=== PATIENT | female | born 1995 | race Caucasian/White ===

== ENCOUNTER 2016-12-17 15:40 | Emergency (ER) | payer MEDICAID ==
[~2016-12-17] VITALS: Ht 163.8 cm; Wt 68.5 kg
[2016-12-17 15:47] VITALS: Ht 163.8 cm; Wt 68.5 kg
[2016-12-17] MEDS ORDERED: SOD CHLORIDE 0.9% 1,000 ML IV STA (17:57)
[2016-12-17 18:47] LABS: ADD SCAN DIFF NO
[2016-12-17 18:51] LABS: BASOPHILS % 0.3 % (0.0-2.0); EOSINOPHILS # 0.1 10^3/ul (0.0-0.5); EOSINOPHILS % 1.3 % (0.0-7.0); HEMATOCRIT 38.9 % (37.0-47.0); HEMOGLOBIN 13.5 g/dl (12.0-16.0); LYMPHOCYTES # 2.5 10^3/ul (0.8-2.9); LYMPHOCYTES % 22.9 % (15.0-51.0); MEAN CORPUSCULAR HEMOGLOBIN 30.9 pg (29.0-33.0); MEAN CORPUSCULAR HGB CONC 34.7 g/dl (32.0-37.0); MEAN PLATELET VOLUME 11.4 fl (7.4-10.4); MONOCYTE # 0.6 10^3/ul (0.3-0.9); MONOCYTES % 5.1 % (0.0-11.0); NEUTROPHIL # 7.6 10^3/ul (1.6-7.5); NEUTROPHILS % 70.1 % (39.0-77.0); PLATELET COUNT 333 10^3/UL (140-415); RED BLOOD COUNT 4.37 10^6/ul (4.20-5.40); RED CELL DISTRIBUTION WIDTH 12.6 % (11.5-14.5); WHITE BLOOD COUNT 10.9 10^3/ul (4.8-10.8)
[2016-12-17 19:01] LABS: ADD UMIC YES; URINE BILIRUBIN (Dip) NEGATIVE (NEGATIVE); URINE BLOOD (Dip) NEGATIVE (NEGATIVE); URINE COLOR LT. YELLOW (YELLOW); URINE GLUCOSE (Dip) NEGATIVE (NEGATIVE); URINE KETONES (Dip) NEGATIVE (NEGATIVE); URINE LEUKOCYTE ESTERASE (Dip) 2+ (NEGATIVE); URINE NITRITE (Dip) NEGATIVE (NEGATIVE); URINE TOTAL PROTEIN (Dip) NEGATIVE (NEGATIVE); URINE UROBILINOGEN (Dip) 0.2 E.U./dL (0.1-1.0)
[2016-12-17 19:01] LABS: ALBUMIN 3.8 g/dl (3.3-4.9)
[2016-12-17 19:03] LABS: CREATININE 0.53 mg/dl (0.44-1.00)
[2016-12-17 19:04] LABS: ALBUMIN/GLOBULIN RATIO 1.15; BILIRUBIN,INDIRECT 0.3 mg/dl (0-1.1); BILIRUBIN,TOTAL 0.3 mg/dl (0.2-1.3); CALCIUM 9.3 mg/dl (8.4-10.2); TOTAL PROTEIN 7.1 g/dl (6.1-8.1)
[2016-12-17 19:20] LABS: SQUAMOUS EPITHELIAL CELL,UR MANY
[2016-12-17 19:24] LABS: BACTERIA,URINE FEW
[2016-12-17 19:30] LABS: POTASSIUM 4.6 mmol/L (3.5-5.1)
[2016-12-17] MEDS ORDERED: METOCLOPRAMIDE 10 MG TAB PO ONE (19:30)
[2016-12-17] MEDS ORDERED: CEPHALEXIN 500 MG CAP PO STA (19:48)
[2016-12-17] MEDS ORDERED: CEPH-443 PO (19:49)
[2016-12-17] MEDS ORDERED: METO10TA92 PO (19:50)
--- NOTE | 2016-12-17 19:56 | ERD ---
ER Documentation Chief Complaint Date/Time DATE: 12/17/16 TIME: 19:52 Chief Complaint 16 wks preg vomit x 2 days HPI This is a 21-year-old female who is A1 stating that she is 16 weeks complaining of 2 days of vomiting. Patient denies any vaginal bleeding , abdominal pain, pelvic pain, shortness of breath or fever. Patient denies diarrhea. Patient states that she has been evaluated at Dr.Payman Rothman at the [facility] for IV hydration secondary to a gastrointestinal virus. Patient states that her her last ultrasound and blood work was normal. Patient has not taken any medications for this ROS All systems reviewed and are negative except as per history of present illness. Medications Home Meds Active Scripts Metoclopramide* (Reglan*) 10 Mg Tablet, 10 MG PO Q6 Y for NAUSEA AND/OR VOMITING , #10 TAB Prov:KAYLIN HERNANDEZ PA-C 12/17/16 Cephalexin* (Keflex*) 500 Mg Capsule, 500 MG PO QID for 7 Days, CAP Prov:KAYLIN HERNANDEZ PA-C 12/17/16 PMhx/Soc Medical and Surgical Hx: pt denies Medical Hx History of Surgery: Yes (RT BREAST FIBROID SX) Anesthesia Reaction: No Hx Neurological Disorder: No Hx Respiratory Disorders: No Hx Cardiac Disorders: No Hx Psychiatric Problems: No Hx Miscellaneous Medical Probl: No Hx Alcohol Use: No Hx Substance Use: No Hx Tobacco Use: No Physical Exam Vitals Vital Signs Date Time Temp Pulse Resp B/P Pulse Ox O2 Delivery O2 Flow Rate FiO2 12/17/16 15:47 98.6 76 18 109/58 97 Physical Exam GENERAL: well-developed/well-nourished, in no apparent distress, non-toxic appearing HENT: NC/AT, moist mucous membranes EYES: Conjunctiva normal NECK: Supple, no lymphadenopathy PULM: CTA bilaterally, no rales, rhonchi, or wheezing heard CV: Normal S1S2, RRR, good capillary refill GI: Soft, non-distended, momtender to palpation Normal bowel sounds, no masses or organomegaly felt on exam No gross peritonitis, no bruits Negative Rovsing, negative Ash, negative McBurney's point, Negative CVAT BACK: No masses EXT: No clubbing, cyanosis, or edema NEURO: Alert and Orientated SKIN: Intact, normal turgor PSYCH: Normal mood and mentation Result Diagram: 12/17/16182812/17/161828 Results 24 hrs Laboratory Tests Test 12/17/16 18:05 12/17/16 18:29 Urine Bacteria FEW Urine Bilirubin NEGATIVE Urine Clarity CLEAR Urine Color LT. YELLOW Urine Glucose NEGATIVE% Urine Hemoglobin NEGATIVE Urine Ketones NEGATIVE Urine Leukocyte Esterase 2+ Urine Microscopic RBC 2-5/HPF Urine Microscopic WBC 5-10/HPF Urine Nitrite NEGATIVE Urine Specific [place] 1.010 Urine Squamous Epithelial Cells MANY Urine Starch Urine Total Protein NEGATIVE Urine Urobilinogen 0.2 E.U./dL Urine pH 8.0 Alanine Aminotransferase (ALT/SGPT) 41IU/L Albumin 3.8g/dl Albumin/Globulin Ratio 1.15 Alkaline Phosphatase 72IU/L Anion Gap 14 Aspartate Amino Transf (AST/SGOT) 63IU/L Basophils # 0.010^3/ul Basophils % 0.3% Blood Urea Nitrogen 8mg/dl Calcium Level 9.3mg/dl Carbon Dioxide Level 25mmol/L Chloride Level 104mmol/L Creatinine 0.53mg/dl Direct Bilirubin 0.00mg/dl Eosinophils # 0.110^3/ul Eosinophils % 1.3% Globulin 3.30g/dl Glucose Level 70mg/dl Hematocrit 38.9% Hemoglobin 13.5g/dl Indirect Bilirubin 0.3mg/dl Lipase 86U/L Lymphocytes # 2.510^3/ul Lymphocytes % 22.9% Mean Corpuscular Hemoglobin 30.9pg Mean Corpuscular Hemoglobin Concent 34.7g/dl Mean Corpuscular Volume 89.0fl Mean Platelet Volume 11.4fl Monocytes # 0.610^3/ul Monocytes % 5.1% Neutrophils # 7.610^3/ul Neutrophils % 70.1% Nucleated Red Blood Cells # 0.010^3/ul Nucleated Red Blood Cells % 0.0/100WBC Platelet Count 35490^3/UL Potassium Level 4.6mmol/L Red Blood Count 4.3710^6/ul Red Cell Distribution Width 12.6% Sodium Level 138mmol/L Total Bilirubin 0.3mg/dl Total Protein 7.1g/dl White Blood Count 10.910^3/ul Current Medications Medications (Trade) Dose Ordered Sig/Bernardo Route PRN Reason Start Time Stop Time Status Last Admin Dose Admin Sodium Chloride (NS) 1,000 ml @ 1,000 mls/hr Q1H STAT IV 12/17/16 17:57 12/17/16 18:56 DC 12/17/16 18:36 Metoclopramide HCl (Reglan) 10 mg ONCE ONCE PO 12/17/16 19:30 12/17/16 19:31 DC 12/17/16 19:14 Cephalexin (Keflex) 500 mg ONCE STAT PO 12/17/16 19:48 12/17/16 19:49 DC Procedures/MDM This is a 21-year-old female who is A1 stating that she is 16 weeks complaining of 2 days of vomiting. Patient states that she has been evaluated at Dr.Payman Rothman at the [facility] [place] [facility] for IV hydration secondary to a gastrointestinal virus. Patient states that her her last ultrasound and blood work was normal. My differentials include but not limited to viral gastritis, hyperemesis gravidarum, urinary tract infection. There was no evidence of pyelonephritis, nephrolithiasis. She did not have any evidence of significant dehydration. Patient appears well, she has stable vital signs. She does not seem to be in any distress. IV access established. Patient was given 1 L of fluids. She was also given Reglan with improvement. Lab work was done. CBC did not show any evidence of significant anemia or leukocytosis. CMP was unremarkable. Urinalysis did show +2 leukocyte esterase and 2-5 white count therefore patient will be empirically treated for Keflex antibiotic. Her first dose was given in the ED. I discussed with patient to follow-up with Dr. Kinsey tomorrow for further action management. Patient understands and agrees with this plan. Prescription Keflex and Reglan was given Departure Diagnosis: Primary Impression: UTI in Additional Impression: Vomiting Condition: Stable Patient Instructions: Understanding Urinary Tract Infections (UTIs), Diet, Vomiting Or Diarrhea [6Yr-Adult], Vomiting (6Y-Adult) Referrals: PRATEEK ROTHMAN MD Additional Instructions: Visite a darby arti madrigal para un EXAMEN.Regrese a estas instalaciones si no se mejora tiffany esperbamos o tiffany le dijimos. [place] toda la medicina mikhail y tiffany se le indic. Regrese a estas instalaciones si no se mejora tiffany esperbamos o tiffany le dijimos. KAYLIN HERNANDEZ PA-C Dec 17, 2016 19:56
[2016-12-17 20:29] VITALS: BP 104/70; PULSE 74; RESP 18; TEMP 98.6
== END 2016-12-17 20:31 | disposition home or self-care (01) ==
LOC: FTE 15:40
DX: O23.42 Unspecified infection of urinary tract in pregnancy, second trimester (principal); Z3A.16 16 weeks gestation of pregnancy
CPT/HCPCS: 80053; 81001; 83690; 85025; J7030; Z7502; Z7610; 81003

== ENCOUNTER 2017-04-23 15:33 | Inpatient (IN) | payer MEDICAID ==
[~2017-04-23] VITALS: Ht 152.4 cm; Wt 66.2 kg
[~2017-04-23 15:33] MED LIST: CEPH-443 PO; METO10TA92 PO
[2017-04-23 15:44] VITALS: BP 134/84; PULSE 76; RESP 20
[2017-04-23 15:47] VITALS: Ht 152.4 cm; Wt 66.2 kg
[2017-04-23] MEDS ORDERED: PRENAT PO (15:49)
[2017-04-23] MEDS ORDERED: FERR325C PO (15:49)
[2017-04-23] MEDS ORDERED: CALC650T12 PO (15:50)
--- NOTE | 2017-04-23 16:57 | RADRPT ---
PROCEDURE: OB ultrasound for biophysical profile CLINICAL INDICATION: Decreased movement TECHNIQUE: Multiple sonographic images of the pelvis were obtained. Transabdominal view of the gr avid uterus are available for review. The images were reviewed on a PACS workstation. COMPARISON: None FINDINGS: breathing movement = 2/2 tone = 2/2 motion = 2/2 Quantitative amniotic fluid volume = 0/2 CARLITO = 3.4 cm Single live intrauterine with cardiac activity at 137 beats per minute. There is a left lateral placenta without previa. IMPRESSION: 1. Single living intrauterine gestation in cephalic position. 2. Biophysical profile = 68. 3. CARLITO = 3.4 cm consistent with mild oligohydramnios. A call report was made to labor and manager delivery. Olivia on 04/23/2017 4:54:46 PM. RPTAT: AACC Physician Indu Date Time Electronically viewed and signed by Physician Indu on 04/23/2017 16:57 ELIZABETH/
[2017-04-23] MEDS ORDERED: ACETAMINOPHEN 325 MG TAB PO PRN (17:30)
[2017-04-23] MEDS ORDERED: ONDANSETRON 4 MG INJ IV PRN (17:30)
--- NOTE | 2017-04-23 17:51 | RADRPT ---
PROCEDURE: US OB. CLINICAL INDICATION: Low amniotic fluid volume. TECHNIQUE: Multiple sonographic images of the uterus were obtained. The images were revi ewed on a PACS workstation. COMPARISON: No prior studies are available for comparison. FINDINGS: There is a single live intrauterine gestation. heart rate is 136 beats per minute. Measurements were made in order to determine age. The results are as follows: BPD = 7.98 cm. HC = 30.12 cm. AC = 31.07 cm. FL = 6.68 cm. Estimated weight is 2411 +/- 362 grams. LMP growth percentile is 50 %. The umbilical artery systolic to diastolic ratio is 2.6 Menstrual age by ultrasound dates is 33 weeks 5 days. The estimated date of delivery is 06/06/2017. Position is cephalic and placenta is left lateral grade II. There is no evidence for an abruption or placenta previa. IMPRESSION: 1. Single live intrauterine gestation of 33 weeks 5 days menstrual age by ultrasound dates. 2. The estimated date of delivery is 06/06/2017. 3. Umbilical artery systolic to diastolic ratio is 2.6. RPTAT: QQ .Cecil Arita MD, Date Time Electronically viewed and signed by .Cecil Arita MD, on 04/23/2017 17:51 .R/
[2017-04-23] MEDS: LACTATED RINGER'S 1,000 ML IV SCH (18:15)
[2017-04-23] MEDS: BETAMET NA PHOS/AC(6 MG/ML) 5ML INJ IM SCH (18:24)
[2017-04-23 18:31] LABS: ADD SCAN DIFF NO
[2017-04-23 18:34] LABS: BASOPHILS % 0.3 % (0.0-2.0); EOSINOPHILS # 0.1 10^3/ul (0.0-0.5); EOSINOPHILS % 1.1 % (0.0-7.0); HEMATOCRIT 39.1 % (37.0-47.0); HEMOGLOBIN 13.5 g/dl (12.0-16.0); LYMPHOCYTES % 19.9 % (15.0-51.0); MEAN CORPUSCULAR HEMOGLOBIN 31.6 pg (29.0-33.0); MEAN CORPUSCULAR HGB CONC 34.5 g/dl (32.0-37.0); MEAN CORPUSCULAR VOLUME 91.6 fl (82.0-101.0); MEAN PLATELET VOLUME 10.7 fl (7.4-10.4); MONOCYTE # 0.7 10^3/ul (0.3-0.9); MONOCYTES % 6.8 % (0.0-11.0); NEUTROPHIL # 7.3 10^3/ul (1.6-7.5); NEUTROPHILS % 71.7 % (39.0-77.0); PLATELET COUNT 366 10^3/UL (140-415); RED BLOOD COUNT 4.27 10^6/ul (4.20-5.40); WHITE BLOOD COUNT 10.2 10^3/ul (4.8-10.8)
[2017-04-23 18:50] LABS: INR 0.88; PROTIME 11.9 Sec (12.2-14.2); PT RATIO 0.9
[2017-04-23 18:51] LABS: PARTIAL THROMBOPLASTIN TIME 24.3 Sec (25.0-35.0)
[2017-04-23 19:01] LABS: ALBUMIN 3.7 g/dl (3.3-4.9); ALBUMIN/GLOBULIN RATIO 0.94; BILIRUBIN,INDIRECT 0.1 mg/dl (0-1.1); BILIRUBIN,TOTAL 0.1 mg/dl (0.2-1.3); CALCIUM 9.7 mg/dl (8.4-10.2); CREATININE 0.52 mg/dl (0.44-1.00); POTASSIUM 4.2 mmol/L (3.5-5.1); TOTAL PROTEIN 7.6 g/dl (6.1-8.1)
--- NOTE | 2017-04-23 19:19 | TRIAGE ---
OB Triage Datetime Report Generated by CPN: 04/23/2017 19:18 Datetime: 04/23/2017 18:34 Stage of : Antepartum Datetime: 04/23/2017 17:53 Stage of : Antepartum Datetime: 04/23/2017 17:30 Labor Evaluation Frequency: IRREG Monitor Mode: External Duration (sec)2399: 50-80 Quality: Moderate Pattern: Normal: <= 5 Contractions in 10 Minutes Resting Tone Soham: Relaxed Heart Rate FHR Baseline Rate: 135 Monitor Mode: External US Variability: Moderate 6-25 bpm Accelerations: 15X15 Decelerations: None Category: Category I Datetime: 04/23/2017 17:23 Stage of : Labor Datetime: 04/23/2017 16:40 Labor Evaluation Frequency: IRREG Monitor Mode: External Duration (sec)2399: 50-80 Quality: Mild Pattern: Normal: <= 5 Contractions in 10 Minutes Resting Tone Soham: Relaxed Heart Rate FHR Baseline Rate: 135 Monitor Mode: External US Variability: Moderate 6-25 bpm Accelerations: 15X15 Decelerations: None Category: Category I Datetime: 04/23/2017 15:54 Maternal Assessment Level of Consciousness: Fully Conscious DTR's/Clonus: DTRs 2+; No Clonus Headache: Denies Blurred Vision: No Respiratory Effort: Unlabored; Regular Rhythm; Equal Expansion Breath Sounds, Left: Clear and Equal Breath Sounds, Right: Clear and Equal Nausea/Vomiting: Denies RUQ Epigastric Pain: Denies Facial Edema: None Fall Risk Assessment History of Falling: (0) No Secondary Diagnosis: (0) No Ambulatory Aid: (0) Bedrest/Nurse Assist IV Therapy: (0) No Gait: (0) Normal/Bedrest/Immobile Mental Status: (0) Oriented to Own Ability Fall Score: 0 Fall Risk Score Definition: No Risk: No action required Datetime: 04/23/2017 15:53 Stage of : OB Triage Assessment Type: Triage Maternal Assessment Level of Consciousness: Fully Conscious DTR's/Clonus: DTRs 2+; No Clonus Headache: Denies Blurred Vision: No Respiratory Effort: Unlabored; Regular Rhythm; Equal Expansion Breath Sounds, Left: Clear and Equal Breath Sounds, Right: Clear and Equal Nausea/Vomiting: Denies RUQ Epigastric Pain: Denies Lower Extremities Edema: None Degree: None Upper Extremities Edema: None Degree: None Facial Edema: None Temperature Route: Axillary Fall Risk Assessment History of Falling: (0) No Secondary Diagnosis: (0) No Ambulatory Aid: (0) Bedrest/Nurse Assist IV Therapy: (0) No Gait: (0) Normal/Bedrest/Immobile Mental Status: (0) Oriented to Own Ability Fall Score: 0 Fall Risk Score Definition: No Risk: No action required Pain Assessment Pain Scale: 0 Pain Presence: None/Denies Datetime: 04/23/2017 15:43 Time of Arrival: 04/23/2017 15:29 EGA: 34.1 Arrived By: Ambulatory Arrived From: Home Chief Complaint: pt c/o dfm x4 day Movement: Present Contractions: Denies/Absent Rupture of Membranes: Denies Vaginal Bleeding: None Vaginal Discharge: Denies Recent Sexual Intercouse: Denies Abdominal Trauma: Not Applicable Time Provider Notified: 04/23/2017 15:40 Provider Notified: dr. posada Initial Plan: donovan
[2017-04-23 19:56] LABS: ADD UMIC YES; UR ASCORBIC ACID NEGATIVE (NEGATIVE); UR BILIRUBIN (Dip) NEGATIVE (NEGATIVE); UR BLOOD (Dip) NEGATIVE (NEGATIVE); UR CLARITY CLOUDY (CLEAR); UR COLOR YELLOW (YELLOW); UR GLUCOSE (Dip) NEGATIVE (NEGATIVE); UR KETONES (Dip) NEGATIVE (NEGATIVE); UR LEUKOCYTE ESTERASE (Dip) NEGATIVE Leu/ul (NEGATIVE); UR NITRITE (Dip) NEGATIVE (NEGATIVE); UR RBC 0 /HPF (0-5); UR SQUAMOUS EPITHELIAL CELL FEW /HPF (FEW); UR TOTAL PROTEIN (Dip) NEGATIVE (NEGATIVE); UR UROBILINOGEN (Dip) NEGATIVE (NEGATIVE)
--- NOTE | 2017-04-23 19:59 | HP ---
Date/Time of Note Date/Time of Note DATE: 04/23/17 TIME: 19:52 OB - History Hx of Present Free Text/Dictation Patient is a 21-year-old with at 34 weeks and [address] day and care with Dr. Telles, presented to triage with complaint of decreased movements. Patient denied any leaking of fluid, vaginal bleeding or uterine contractions. Her NST was category 1. During BPP oligohydramnios was noted. CARLITO 3.4. She also was noted to have some contractions less than 10 minutes apart however patient did not complain of any feeling cramps or pain. She was comfortable. Denied any vaginal bleeding. There was no antepartum complication. KATERYNA June 03, 2017 Past Family/Social History * Past Medical, Surgical, Family and Obstetric Histories reviewed from chart. OB Admission Exam Vital Signs Vital Signs Vital Signs Date Time Temp Pulse Resp B/P Pulse Ox O2 Delivery O2 Flow Rate FiO2 04/23/17 15:44 98.3 76 20 134/84 Room Air Physical Exam HEENT: WNL Lungs: Clear Abdomen: WNL Effacement: 0% Station: -3 Membranes: Intact Heart Rate: 120's Accelerations: Accelerations Present Varibility: Moderate Contractions on Admission: < 5 Minutes Apart Intensity: Mild Last 72 hours Lab Results CBC & BMP 04/23/17 18:15 Liver Function Test 04/23/17 18:15 Alanine Aminotransferase (ALT/SGPT) 104 H Albumin 3.7 Alkaline Phosphatase 203 H Aspartate Amino Transf (AST/SGOT) 70 H Direct Bilirubin 0.00 Total Protein 7.6 OB Assessment/Plan Other Assessment: IUP at 34 weeks and 1 day Decreased movement for 4 days Oligohydramnios Unclear etiology Patient denied any complication during her antepartum course We will admit the patient to antepartum service Consider IV hydration and repeat CARLITO tomorrow with a close monitoring Growth ultrasound, rule out IUGR requested Perinatology/neonatology consultation Due to possibility and risk of delivery prior to 37 weeks in the context of oligohydramnios, discussed with the patient regarding steroids for lung maturity Patient desires to proceed Other plan: Continuous monitoring IV hydration Neonatology/perinatology consultation Repeat CARLITO after 24 hours steroids discussed with the patient Desires to proceed Follow-up with growth ultrasound rule out IUGR Questions were answered YURI CARIAS MD Apr 23, 2017 19:59
[2017-04-24 00:49] LABS: ADD UMIC NO; UR ASCORBIC ACID NEGATIVE (NEGATIVE); UR BILIRUBIN (Dip) NEGATIVE (NEGATIVE); UR BLOOD (Dip) NEGATIVE (NEGATIVE); UR CLARITY CLEAR (CLEAR); UR COLOR COLORLESS (YELLOW); UR GLUCOSE (Dip) NEGATIVE (NEGATIVE); UR KETONES (Dip) NEGATIVE (NEGATIVE); UR LEUKOCYTE ESTERASE (Dip) NEGATIVE Leu/ul (NEGATIVE); UR NITRITE (Dip) NEGATIVE (NEGATIVE); UR SPECIFIC GRAVITY (Dip) 1.002 (1.003-1.030); UR TOTAL PROTEIN (Dip) NEGATIVE (NEGATIVE); UR UROBILINOGEN (Dip) NEGATIVE (NEGATIVE)
[2017-04-24] MEDS: LACTATED RINGER'S 1,000 ML IV SCH ×3 (01:26→18:01)
[2017-04-24 02:43] LABS: BARBITURATES Negative (NEGATIVE); BENZODIAZEPINES Negative (NEGATIVE); CANNABINOIDS Negative (NEGATIVE); COCAINE Negative (NEGATIVE); OPIATES Negative (NEGATIVE)
[2017-04-24] MEDS ORDERED: DIPHENHYDRAMINE 25 MG CAP PO ONE (03:30)
[2017-04-24 06:54] LABS: ALBUMIN 3.2 g/dl (3.3-4.9)
[2017-04-24 08:08] LABS: TOTAL PROTEIN 6.5 g/dl (6.1-8.1)
[2017-04-24] MEDS: PRENATAL VITAMIN PO SCH (08:51)
--- NOTE | 2017-04-24 13:08 | RADRPT ---
PROCEDURE: Limited OB ultrasound CLINICAL INDICATION: Low CARLITO TECHNIQUE: Sonographic evaluation to assess the CARLITO was performed. Transabdominal imaging of the gravid uterus was performed. COMPARISON: No prior exam is available for comparison. FINDINGS: There is a single live intrauterine with a heart rate of 152 bpm. position is cephalic. The placenta is left lateral. The CARLITO measures 7.7 cm. IMPRESSION: The CARLITO measures 7.7 cm. RPTAT: HH .Beth Tejada MD, MD Date Time Electronically viewed and signed by .Beth Tejada MD, on 04/24/2017 13:08 .G/
--- NOTE | 2017-04-24 14:55 | DS ---
Date/Time of Note Date/Time of Note DATE: 04/24/17 TIME: 14:54 Obstetrical Discharge Record Final Diagnosis Final Diagnosis: not delivered Other Final Diagnosis 34 weeks gestation Clinical hydra Condition on Discharge Physical Assessment Last Vitals: See nurse's notes Voiding: Yes Bowel Movement: Yes Breast: Soft, non-tender, Filling Fundus: Other () Abdomen and Incision: Gravid Episiotomy: Not applicable Calf Tenderness: No Patient Condition: Good MIGUEL ABDALLA MD Apr 24, 2017 14:55
--- NOTE | 2017-04-24 17:22 | PN ---
Date/Time of Note Date/Time of Note DATE: 04/24/17 TIME: 17:18 OB Subjective Subjective Subjective C/O onset of body itching OB Objective Objective Objective Patient physical exam is unchanged Vital signs are stable Elevated liver enzymes noticed Biopsies were ordered OB Assessment/Plan Other Assessment: Oligohydramnios at 34 weeks Possible cholestasis with elevated liver enzymes Other plan: Continue to observe Perinatology consult next MIGUEL ABDALLA MD Apr 24, 2017 17:22
[2017-04-24] MEDS: BETAMET NA PHOS/AC(6 MG/ML) 5ML INJ IM SCH (18:23)
[2017-04-24] MEDS ORDERED: COLESEVELAM 625 MG TAB PO SCH (21:00)
[2017-04-24] MEDS: COLESEVELAM 625 MG TAB PO SCH (21:09)
[2017-04-24] MEDS: URSODIOL 300 MG CAP PO SCH (21:09)
[2017-04-25] MEDS: COLESEVELAM 625 MG TAB PO SCH ×4 (00:36→19:12)
[2017-04-25] MEDS: LACTATED RINGER'S 1,000 ML IV SCH ×2 (02:04→10:07)
[2017-04-25 07:51] LABS: ALBUMIN 3.5 g/dl (3.3-4.9); ALBUMIN/GLOBULIN RATIO 0.94; CALCIUM 9.5 mg/dl (8.4-10.2); CREATININE 0.47 mg/dl (0.44-1.00); POTASSIUM 3.9 mmol/L (3.5-5.1); TOTAL PROTEIN 7.2 g/dl (6.1-8.1)
--- NOTE | 2017-04-25 07:58 | RADRPT ---
PROCEDURE: Limited OB ultrasound CLINICAL INDICATION: Low amniotic fluid TECHNIQUE: Sonographic evaluation to assess the CARLITO was performed. Transabdominal imaging of the gravid uterus was performed. COMPARISON: OB ultrasound for CARLITO dated 04/24/2017 FINDINGS: There is a single live intrauterine with a heart rate of 129 bpm. position is cephalic. The placenta is left lateral. The CARLITO measures 9.9 cm. IMPRESSION: The CARLITO measures 9.9 cm. RPTAT: HH .Beth Tejada MD, MD Date Time Electronically viewed and signed by .Beth Tejada MD, on 04/25/2017 07:58 .G/
[2017-04-25] MEDS: PRENATAL VITAMIN PO SCH (08:48)
[2017-04-25] MEDS: URSODIOL 300 MG CAP PO SCH ×3 (08:48→20:52)
--- NOTE | 2017-04-25 14:26 | PERINOTE ---
Date/Time of Note Date/Time of Note DATE: 04/25/17 TIME: 14:19 Assessment/Recommendations Other Assessments Patient with IUP, itching and mildly elevated LFTs, improving on Actigal. Bile acid determination is pending, but cholestasis of seems likely. Recommendations: With cholestasis and elevated LFTs, would consider delivery at about 36 weeks GA. Final recommendation pending bile acid results. I feel that this patient could be discharged home with weekly LFTs and bile acids, twice weekly testing. OB Subjective Free Text/Dictaton Patient admitted for decreased movement. This resolved, but she then complained for severe itching. Bile acid values are pending, AST/ALT are mildly elevated, with some decrease since admission. Patient also found to have oligohydramnios on admission, now resolved with hydration. HD# 3 IUP @ 34W3D Current Medications Current Medications Lactated Ringer's (Lr) 1,000 ml @ 125 mls/hr Q8H IV Last administered on 10:07; Admin Dose 125 MLS/HR; Start 04/23/17 at 17:12 Prenat Multivit/ [place]/Iron/Folic Ac () 1 tab DAILY PO Last administered on 04/25/17 08:48; Admin Dose 1 TAB; Start 04/24/17 at 09:00 Acetaminophen (Tylenol Tab) 650 mg Q4H PRN PO PAIN AND OR ELEVATED TEMP; Start 04/23/17 at 17:30 Ondansetron HCl (Zofran Inj) 4 mg Q6H PRN IV NAUSEA AND/OR VOMITING; Start at 17:30 Ursodiol (Actigall) 300 mg TID PO Last administered on 04/25/17 12:44; Admin Dose 300 MG; Start 04/24/17 at 21:00 Colesevelam HCl (Welchol) 625 mg Q6 PO Last administered on 04/25/17 11:58; Admin Dose 625 MG; Start 04/24/17 at 21:00 Past Medical History Medical History: no pertinent history Surgical History: no surgical history 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 Para: 0 : 2 LMP (Females 10-50): Family History Significant Family History: no pertinent family hx OB Admission Exam Physical Exam Vitals: Vital Signs Date Time Temp Pulse Resp B/P Pulse Ox O2 Delivery O2 Flow Rate FiO2 7/19/17 15:44 98.3 76 20 134/84 Room Air 04/25/17 98.5 74 119/62 Abdomen: WNL Extremities: Normal Reflexes: Normal Heart Rate: 140's Accelerations: Accelerations Present Decelerations: No Decelerations Varibility: Moderate Contractions on Admission: 6-10 Minutes Apart (irregular) Last 72 hours Lab Results CBC & BMP 04/23/17 18:15 04/25/17 06:22 Liver Function Test 04/23/17 18:15 04/24/17 05:45 04/25/17 06:22 Alanine Aminotransferase (ALT/SGPT) 104 H 85 H 83 H Albumin 3.7 3.2 L 3.5 Alkaline Phosphatase 203 H 168 H 171 H Aspartate Amino Transf (AST/SGOT) 70 H 51 H 50 H Direct Bilirubin 0.00 0.00 0.00 Total Protein 7.6 6.5 # 7.2 CATHLEEN GALEANO MD Apr 25, 2017 14:25
--- NOTE | 2017-04-25 18:12 | QN ---
Documentation Comment Patient is 27-year-old female at 34+ weeks gestation with possible cholestasis of Was evaluated by perinatologist today who recommended to follow the patient as outpatient in antepartum unit [facility] We will discharge home today. Perinatologist recommendation Continue Capo and MIGUEL Tavarez MD Apr 25, 2017 18:11
--- NOTE | 2017-04-25 18:13 | PD.PPDC ---
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
[2017-04-25] MEDS ORDERED: URSO300C3 PO (18:14)
[2017-04-25] MEDS ORDERED: COLE625T2 PO (18:14)
[2017-04-28 17:51] LABS: CHOLIC ACID 4.5 umol/L (< OR = 1.8); DEOXYCHOLIC ACID 0.6 umol/L (< OR = 2.4); TOTAL BILE ACIDS 8.1 umol/L (< OR = 6.8)
== END 2017-04-25 21:15 | disposition home or self-care (01) | DRG 781 ==
LOC: OBT 15:33 → L-D 15:34 → OBT 16:50 → OBG 16:50 → L-D 17:44 → OBG 19:52
PROVIDERS: ADMIT Obstetrics & Gynecology; ATTEND Obstetrics & Gynecology
DX: O26.893 Other specified pregnancy related conditions, third trimester (principal); K83.1 Obstruction of bile duct; O26.613 Liver and biliary tract disorders in pregnancy, third trimester; O76 Abnormality in fetal heart rate and rhythm complicating labor and delivery; Z3A.34 34 weeks gestation of pregnancy
CPT/HCPCS: 76815; 76816; 76818; 76820; 80053; 80076; 80307; 81001; 81003; 83789; 84112; 85025; 85384; 85610; 85730; 87086; G0463; J0702; J7120

== ENCOUNTER 2017-04-30 12:11 | Outpatient (CLI) | payer MEDICAID ==
[~2017-04-30] VITALS: Ht 152.4 cm; Wt 74.6 kg
[~2017-04-30 12:11] MED LIST changes: +CALC650T12 PO; +COLE625T2 PO; +FERR325C PO; +PRENAT PO; +URSO300C3 PO
[2017-04-30 12:56] LABS: ALBUMIN 3.9 g/dl (3.3-4.9); BILIRUBIN,INDIRECT 0.1 mg/dl (0-1.1); BILIRUBIN,TOTAL 0.1 mg/dl (0.2-1.3); CALCIUM 9.6 mg/dl (8.4-10.2); CREATININE 0.45 mg/dl (0.44-1.00); POTASSIUM 4.3 mmol/L (3.5-5.1); TOTAL PROTEIN 7.8 g/dl (6.1-8.1)
[2017-04-30 13:03] VITALS: BP 111/65; PULSE 70; RESP 20; Ht 152.4 cm; Wt 74.6 kg
--- NOTE | 2017-04-30 13:04 | RADRPT ---
PROCEDURE: US OB biophysical profile. CLINICAL INDICATION: decreased movements, contractions TECHNIQUE: Multiple sonographic images of the pelvis were obtained. The images were reviewed on a PACS workstation. COMPARISON: 04/23/2017 FINDINGS: There is a single viable intrauterine gestation. Cardiac activity is present with 135 beats per min gambell. There is a vertex presentation. The placenta is posterior fundal. There is no evidence of placental abruption. There is a normal amount of amniotic fluid with an CARLITO = 9.7 cm. Biophysical profile: movement 2/2 tone 2/2. breathing 2/2 CARLITO 2/2 Total 05/13 RPTAT: AA . IMPRESSION: Normal biophysical profile. . .John Howell MD, MD Date Time Electronically viewed and signed by .John Howell MD, MD on 04/30/2017 13:03 .S/
[2017-04-30 13:28] LABS: ADD UMIC YES; UR ASCORBIC ACID NEGATIVE (NEGATIVE); UR BACTERIA FEW /HPF (NONE SEEN); UR BILIRUBIN (Dip) NEGATIVE (NEGATIVE); UR BLOOD (Dip) NEGATIVE (NEGATIVE); UR CLARITY CLEAR (CLEAR); UR COLOR STRAW (YELLOW); UR GLUCOSE (Dip) NEGATIVE (NEGATIVE); UR KETONES (Dip) NEGATIVE (NEGATIVE); UR LEUKOCYTE ESTERASE (Dip) 1+ Leu/ul (NEGATIVE); UR NITRITE (Dip) NEGATIVE (NEGATIVE); UR RBC 1 /HPF (0-5); UR SPECIFIC GRAVITY (Dip) 1.002 (1.003-1.030); UR SQUAMOUS EPITHELIAL CELL FEW /HPF (FEW); UR TOTAL PROTEIN (Dip) NEGATIVE (NEGATIVE); UR UROBILINOGEN (Dip) NEGATIVE (NEGATIVE)
[2017-04-30 14:42] LABS: BASOPHILS % 0.3 % (0.0-2.0); EOSINOPHILS # 0.1 10^3/ul (0.0-0.5); EOSINOPHILS % 1.1 % (0.0-7.0); HEMATOCRIT 33.9 % (37.0-47.0); LYMPHOCYTES # 1.7 10^3/ul (0.8-2.9); LYMPHOCYTES % 17.7 % (15.0-51.0); MEAN CORPUSCULAR HEMOGLOBIN 31.8 pg (29.0-33.0); MEAN CORPUSCULAR HGB CONC 35.4 g/dl (32.0-37.0); MEAN CORPUSCULAR VOLUME 89.9 fl (82.0-101.0); MEAN PLATELET VOLUME 10.4 fl (7.4-10.4); MONOCYTE # 0.6 10^3/ul (0.3-0.9); MONOCYTES % 6.1 % (0.0-11.0); NEUTROPHIL # 7.3 10^3/ul (1.6-7.5); NEUTROPHILS % 74.4 % (39.0-77.0); PLATELET COUNT 292 10^3/UL (140-415); RED BLOOD COUNT 3.77 10^6/ul (4.20-5.40); RED CELL DISTRIBUTION WIDTH 11.8 % (11.5-14.5); WHITE BLOOD COUNT 9.8 10^3/ul (4.8-10.8)
--- NOTE | 2017-04-30 14:49 | PN ---
Triage Information Date/Time April 30, 2017 Weeks of Gestation 35 weeks : 1 Para: 0 Diabetes: none Hypertention: none Additional information 21-year-old female complaining of decreased movement since yesterday and no movement today Patient is known to have elevated liver enzyme Last bile acids done almost a week ago was 8.1 Liver enzymes still elevated Objective Vital Signs Date Time Temp Pulse Resp B/P Pulse Ox O2 Delivery O2 Flow Rate FiO2 04/30/17 13:03 98.0 70 20 111/65 97 Room Air Heart Rate: 140's Heart Rate Comments Reactive Contractions: None Exam Defer Results/Medications Result Diagram: 04/30/17 1219 Results 24 hrs Laboratory Tests Test 04/30/17 12:00 04/30/17 12:19 04/30/17 14:35 Urine Color STRAW Urine Clarity CLEAR Urine pH 7.0 Urine Specific [place] 1.002 L Urine Ketones NEGATIVE Urine Nitrite NEGATIVE Urine Bilirubin NEGATIVE Urine Urobilinogen NEGATIVE Urine Leukocyte Esterase 1+ H Urine Microscopic RBC 1 Urine Microscopic WBC 1 Urine Squamous Epithelial Cells FEW Urine Bacteria FEW A Urine Hemoglobin NEGATIVE Urine Glucose NEGATIVE Urine Total Protein NEGATIVE Sodium Level 139 Potassium Level 4.3 Chloride Level 103 Carbon Dioxide Level 20 L Anion Gap 20 H Blood Urea Nitrogen 8 Creatinine 0.45 Glucose Level 75 Calcium Level 9.6 Total Bilirubin 0.1 L Direct Bilirubin 0.00 Indirect Bilirubin 0.1 Aspartate Amino Transf (AST/SGOT) 29 Alanine Aminotransferase (ALT/SGPT) 40 Alkaline Phosphatase 147 H Total Protein 7.8 Albumin 3.9 Globulin 3.90 H Albumin/Globulin Ratio 1.00 White Blood Count Pending Red Blood Count Pending Hemoglobin Pending Hematocrit Pending Mean Corpuscular Volume Pending Mean Corpuscular Hemoglobin Pending Mean Corpuscular Hemoglobin Concent Pending Red Cell Distribution Width Pending Platelet Count Pending Mean Platelet Volume Pending Imaging Results There is a single viable intrauterine gestation. Cardiac activity is present with 135 beats per minute. There is a vertex presentation. The placenta is posterior fundal. There is no evidence of placental abruption. There is a normal amount of amniotic fluid with an CARLITO = 9.7 cm. Biophysical profile: movement 2/2 tone 2/2. breathing 2/2 CARLITO 2/2 Total 05/13 Assessment/Plan Because of a normal biophysical profile will DC patient home Follow patient as outpatient Patient is going to have antepartum testing biweekly starting tomorrow Bile acids were repeated because of continuous complaint of itching Patient is already on WelChol and ursodiol MIGUEL ABDALLA MD Apr 30, 2017 14:49
--- NOTE | 2017-04-30 15:58 | TRIAGE ---
OB Triage Datetime Report Generated by CPN: 04/30/2017 15:57 Datetime: 04/30/2017 12:58 Time of Arrival: 04/30/2017 12:10 Arrived By: Ambulatory Arrived From: Office Chief Complaint: CAME IN WITH ORDERS FOR REPEAT CMP, BPP. PT ALSO C/O OF BLURRED VISION FOR 3 WEEK S Movement: Present Contractions: Irregular Rupture of Membranes: Denies Vaginal Bleeding: None Vaginal Discharge: Denies Recent Sexual Intercouse: Denies Abdominal Trauma: Not Applicable Patient Complaints: Visual Disturbance Time Provider Notified: 04/30/2017 14:00 Provider Notified: DR. HOLDER Initial Plan: BPP, CMP AND CALL MD Datetime: 04/30/2017 12:30 Stage of : OB Triage Assessment Type: Triage Maternal Assessment Level of Consciousness: Fully Conscious DTR's/Clonus: DTRs 2+; No Clonus Headache: Denies Blurred Vision: No Respiratory Effort: Unlabored; Regular Rhythm; Equal Expansion Breath Sounds, Left: Clear and Equal Breath Sounds, Right: Clear and Equal Nausea/Vomiting: Denies RUQ Epigastric Pain: Denies Lower Extremities Edema: None Degree: None Upper Extremities Edema: None Degree: None Facial Edema: None Temperature Route: Axillary Fall Risk Assessment History of Falling: (0) No Secondary Diagnosis: (0) No Ambulatory Aid: (0) Bedrest/Nurse Assist IV Therapy: (0) No Gait: (0) Normal/Bedrest/Immobile Mental Status: (0) Oriented to Own Ability Datetime: 04/28/2017 14:35 EGA: 34.1 Datetime: 04/25/2017 20:18 Assessment Type: Ongoing Assessment Maternal Assessment Level of Consciousness: Fully Conscious Headache: Denies Blurred Vision: No Respiratory Effort: Unlabored; Regular Rhythm; Equal Expansion Nausea/Vomiting: Denies RUQ Epigastric Pain: Denies Lower Extremities Edema: None Upper Extremities Edema: None Facial Edema: None Fall Risk Assessment History of Falling: (0) No Secondary Diagnosis: (0) No Ambulatory Aid: (0) Bedrest/Nurse Assist IV Therapy: (0) No Gait: (0) Normal/Bedrest/Immobile Mental Status: (0) Oriented to Own Ability Fall Score: 0 Fall Risk Score Definition: No Risk: No action required Datetime: 04/25/2017 20:17 Temperature Route: Oral Pain Assessment Pain Scale: 0 Datetime: 04/25/2017 20:00 Labor Evaluation Frequency: x1 Monitor Mode: External Duration (sec)2399: 120 Quality: Mild [place]: Relaxed Heart Rate FHR Baseline Rate: 140 Monitor Mode: External US FHR Baseline Changes: No Baseline Change Variability: Moderate 6-25 bpm Accelerations: 15X15 Decelerations: None Category: Category I Datetime: 04/25/2017 19:00 Labor Evaluation Frequency: 0 Monitor Mode: External Pattern: Normal: <= 5 Contractions in 10 Minutes [place]: Relaxed Heart Rate FHR Baseline Rate: 140 Monitor Mode: External US FHR Baseline Changes: No Baseline Change Variability: Moderate 6-25 bpm Accelerations: 15X15 Decelerations: None Category: Category I Datetime: 04/25/2017 18:00 Labor Evaluation Frequency: 0 Monitor Mode: External Pattern: Normal: <= 5 Contractions in 10 Minutes [place]: Relaxed Heart Rate FHR Baseline Rate: 130 Monitor Mode: External US FHR Baseline Changes: No Baseline Change Variability: Moderate 6-25 bpm Accelerations: 15X15 Decelerations: None Category: Category I Datetime: 04/25/2017 17:00 Labor Evaluation Frequency: 0 Monitor Mode: External Pattern: Normal: <= 5 Contractions in 10 Minutes [place]: Relaxed Heart Rate FHR Baseline Rate: 140 Monitor Mode: External US FHR Baseline Changes: No Baseline Change Variability: Moderate 6-25 bpm Accelerations: 15X15 Decelerations: None Category: Category I Datetime: 04/25/2017 16:00 Labor Evaluation Frequency: 0 Monitor Mode: External Pattern: Normal: <= 5 Contractions in 10 Minutes [place]: Relaxed Heart Rate FHR Baseline Rate: 140 Heart Rate FHR Baseline Rate: 135 Monitor Mode: External US FHR Baseline Changes: No Baseline Change Variability: Moderate 6-25 bpm Accelerations: 15X15 Decelerations: None Category: Category I Datetime: 04/25/2017 15:00 Labor Evaluation Frequency: 0 Monitor Mode: External Pattern: Normal: <= 5 Contractions in 10 Minutes [place]: Relaxed Heart Rate FHR Baseline Rate: 135 Monitor Mode: External US FHR Baseline Changes: No Baseline Change Variability: Moderate 6-25 bpm Accelerations: 15X15 Decelerations: None Category: Category I Datetime: 04/25/2017 14:00 Labor Evaluation Frequency: 0 Monitor Mode: External Pattern: Normal: <= 5 Contractions in 10 Minutes [place]: Relaxed Heart Rate FHR Baseline Rate: 135 Monitor Mode: External US FHR Baseline Changes: No Baseline Change Variability: Moderate 6-25 bpm Accelerations: 15X15 Decelerations: None Category: Category I Datetime: 04/25/2017 13:00 Temperature Route: Oral Labor Evaluation Frequency: 0 Monitor Mode: External Pattern: Normal: <= 5 Contractions in 10 Minutes [place]: Relaxed Heart Rate FHR Baseline Rate: 130 Monitor Mode: External US FHR Baseline Changes: No Baseline Change Variability: Moderate 6-25 bpm Accelerations: 15X15 Decelerations: None Category: Category I Datetime: 04/25/2017 12:00 Labor Evaluation Frequency: 0 Monitor Mode: External Pattern: Normal: <= 5 Contractions in 10 Minutes [place]: Relaxed Heart Rate FHR Baseline Rate: 130 Monitor Mode: External US FHR Baseline Changes: No Baseline Change Variability: Moderate 6-25 bpm Accelerations: 15X15 Decelerations: None Category: Category I Datetime: 04/25/2017 11:00 Labor Evaluation Frequency: IRRIT Monitor Mode: External Pattern: Normal: <= 5 Contractions in 10 Minutes [place]: Relaxed Heart Rate FHR Baseline Rate: 130 Monitor Mode: External US FHR Baseline Changes: No Baseline Change Variability: Moderate 6-25 bpm Accelerations: 15X15 Decelerations: None Category: Category I Datetime: 04/25/2017 10:00 Labor Evaluation Frequency: IRRIT Monitor Mode: External Pattern: Normal: <= 5 Contractions in 10 Minutes [place]: Relaxed Heart Rate FHR Baseline Rate: 130 Monitor Mode: External US FHR Baseline Changes: No Baseline Change Variability: Moderate 6-25 bpm Accelerations: 15X15 Decelerations: None Category: Category I Datetime: 04/25/2017 09:00 Labor Evaluation Frequency: X2/HR Monitor Mode: External Duration (sec)2399: 50 Quality: Mild Pattern: Normal: <= 5 Contractions in 10 Minutes [place]: Relaxed Heart Rate FHR Baseline Rate: 130 Monitor Mode: External US FHR Baseline Changes: No Baseline Change Variability: Moderate 6-25 bpm Accelerations: 15X15 Decelerations: None Category: Category I Datetime: 04/25/2017 08:00 Temperature Route: Oral Labor Evaluation Frequency: 0 Monitor Mode: External Pattern: Normal: <= 5 Contractions in 10 Minutes [place]: Relaxed Heart Rate FHR Baseline Rate: 120 Monitor Mode: External US FHR Baseline Changes: No Baseline Change Variability: Moderate 6-25 bpm Accelerations: 15X15 Decelerations: None Category: Category I Pain Assessment Pain Scale: 0 Pain Presence: None/Denies Pain Type: N/A Datetime: 04/25/2017 07:19 Assessment Type: Ongoing Assessment Maternal Assessment Level of Consciousness: Fully Conscious DTR's/Clonus: DTRs 2+; No Clonus Headache: Denies Blurred Vision: No Respiratory Effort: Unlabored; Regular Rhythm; Equal Expansion Breath Sounds, Left: Clear and Equal Breath Sounds, Right: Clear and Equal Nausea/Vomiting: Denies RUQ Epigastric Pain: Denies Lower Extremities Edema: None Degree: None Upper Extremities Edema: None Degree: None Facial Edema: None Fall Risk Assessment History of Falling: (0) No Secondary Diagnosis: (0) No Ambulatory Aid: (0) Bedrest/Nurse Assist Gait: (0) Normal/Bedrest/Immobile Mental Status: (0) Oriented to Own Ability Datetime: 04/25/2017 07:00 Labor Evaluation Frequency: NONE Monitor Mode: External [place]: Relaxed Heart Rate FHR Baseline Rate: 125 Monitor Mode: External US Variability: Moderate 6-25 bpm Accelerations: 15X15 Decelerations: None Category: Category I Datetime: 04/25/2017 06:07 Temperature Route: Oral Pain Assessment Pain Scale: 0 Pain Presence: None/Denies Pain Type: N/A Pain Assessment Comments: Pt able to sleep. Datetime: 04/25/2017 06:00 Labor Evaluation Frequency: NONE Monitor Mode: External [place]: Relaxed Heart Rate FHR Baseline Rate: 120 Monitor Mode: External US Variability: Moderate 6-25 bpm Accelerations: 15X15 Decelerations: None Category: Category I Datetime: 04/25/2017 05:00 Labor Evaluation Frequency: NONE Monitor Mode: External [place]: Relaxed Heart Rate FHR Baseline Rate: 120 Monitor Mode: External US Variability: Moderate 6-25 bpm Accelerations: 15X15 Decelerations: None Category: Category I Datetime: 04/25/2017 04:38 Pain Assessment Pain Scale: 0 Pain Presence: None/Denies Pain Type: N/A Datetime: 04/25/2017 04:00 Labor Evaluation Frequency: NONE Monitor Mode: External [place]: Relaxed Heart Rate FHR Baseline Rate: 115 Monitor Mode: External US Variability: Moderate 6-25 bpm Accelerations: 15X15 Decelerations: None Category: Category I Datetime: 04/25/2017 03:00 Labor Evaluation Frequency: NONE Monitor Mode: External [place]: Relaxed Heart Rate FHR Baseline Rate: 115 Monitor Mode: External US Variability: Moderate 6-25 bpm Accelerations: 15X15 Decelerations: None Category: Category I Pain Assessment Pain Scale: 0 Pain Presence: None/Denies Pain Type: N/A Pain Assessment Comments: Pt able to sleep. Datetime: 04/25/2017 02:00 Labor Evaluation Frequency: NONE Monitor Mode: External [place]: Relaxed Heart Rate FHR Baseline Rate: 115 Monitor Mode: External US Variability: Moderate 6-25 bpm Accelerations: 15X15 Decelerations: None Category: Category I Datetime: 04/25/2017 01:04 Pain Assessment Pain Scale: 0 Pain Presence: None/Denies Pain Type: N/A Pain Assessment Comments: Pt able to sleep. Datetime: 04/25/2017 01:00 Labor Evaluation Frequency: NONE Monitor Mode: External [place]: Relaxed Heart Rate FHR Baseline Rate: 115 Monitor Mode: External US Variability: Moderate 6-25 bpm Accelerations: 15X15 Decelerations: None Category: Category I Datetime: 04/25/2017 00:00 Labor Evaluation Frequency: NONE Monitor Mode: External [place]: Relaxed Heart Rate FHR Baseline Rate: 130 Monitor Mode: External US Variability: Moderate 6-25 bpm Accelerations: 15X15 Decelerations: None Category: Category I Datetime: 04/24/2017 23:28 Pain Assessment Pain Scale: 0 Pain Presence: None/Denies Pain Type: N/A Datetime: 04/24/2017 23:00 Labor Evaluation Frequency: NONE Monitor Mode: External [place]: Relaxed Heart Rate FHR Baseline Rate: 135 Monitor Mode: External US Variability: Moderate 6-25 bpm Accelerations: 15X15 Decelerations: None Category: Category I Datetime: 04/24/2017 22:00 Labor Evaluation Frequency: NONE Monitor Mode: External [place]: Relaxed Heart Rate FHR Baseline Rate: 135 Monitor Mode: External US Variability: Moderate 6-25 bpm Accelerations: 15X15 Decelerations: None Category: Category I Datetime: 04/24/2017 21:00 Labor Evaluation Frequency: NONE Monitor Mode: External [place]: Relaxed Heart Rate FHR Baseline Rate: 135 Monitor Mode: External US Variability: Moderate 6-25 bpm Accelerations: 15X15 Decelerations: None Category: Category I Pain Assessment Pain Scale: 0 Pain Presence: None/Denies Pain Type: N/A Datetime: 04/24/2017 20:00 Labor Evaluation Frequency: NONE Monitor Mode: External [place]: Relaxed Heart Rate FHR Baseline Rate: 130 Monitor Mode: External US Variability: Moderate 6-25 bpm Accelerations: 15X15 Decelerations: None Category: Category I Datetime: 04/24/2017 19:29 Temperature Route: Oral Pain Assessment Pain Scale: 0 Pain Presence: None/Denies Pain Type: N/A Datetime: 04/24/2017 19:24 Assessment Type: Ongoing Assessment Maternal Assessment Level of Consciousness: Fully Conscious DTR's/Clonus: DTRs 2+; No Clonus Headache: Denies Blurred Vision: No Respiratory Effort: Unlabored; Regular Rhythm; Equal Expansion Breath Sounds, Left: Clear and Equal Breath Sounds, Right: Clear and Equal Nausea/Vomiting: Denies RUQ Epigastric Pain: Denies Lower Extremities Edema: None Degree: None Upper Extremities Edema: None Degree: None Facial Edema: None Fall Risk Assessment History of Falling: (0) No Secondary Diagnosis: (0) No Ambulatory Aid: (0) Bedrest/Nurse Assist IV Therapy: (20) Yes Gait: (0) Normal/Bedrest/Immobile Mental Status: (0) Oriented to Own Ability Fall Score: 20 Fall Risk Score Definition: No Risk: No action required Datetime: 04/24/2017 19:00 Labor Evaluation Frequency: 0 Monitor Mode: External Pattern: Normal: <= 5 Contractions in 10 Minutes [place]: Relaxed Heart Rate FHR Baseline Rate: 130 Monitor Mode: External US FHR Baseline Changes: No Baseline Change Variability: Moderate 6-25 bpm Accelerations: 15X15 Decelerations: None Category: Category I Datetime: 04/24/2017 18:00 Labor Evaluation Frequency: X1/HR +IRRIT Monitor Mode: External Duration (sec)2399: 50 Quality: Mild Pattern: Normal: <= 5 Contractions in 10 Minutes [place]: Relaxed Heart Rate FHR Baseline Rate: 130 Monitor Mode: External US FHR Baseline Changes: No Baseline Change Variability: Moderate 6-25 bpm Accelerations: 15X15 Decelerations: None Category: Category I Datetime: 04/24/2017 17:05 Labor Evaluation Frequency: 0 Monitor Mode: External Pattern: Normal: <= 5 Contractions in 10 Minutes [place]: Relaxed Heart Rate FHR Baseline Rate: 120 Monitor Mode: External US FHR Baseline Changes: No Baseline Change Variability: Moderate 6-25 bpm Accelerations: 15X15 Decelerations: None Category: Category I Datetime: 04/24/2017 16:00 Temperature Route: Oral Labor Evaluation Frequency: 0 Monitor Mode: External Pattern: Normal: <= 5 Contractions in 10 Minutes [place]: Relaxed Heart Rate FHR Baseline Rate: 130 Monitor Mode: External US FHR Baseline Changes: No Baseline Change Variability: Moderate 6-25 bpm Accelerations: 15X15 Decelerations: None Category: Category I Datetime: 04/24/2017 15:00 Labor Evaluation Frequency: 0 Monitor Mode: External Pattern: Normal: <= 5 Contractions in 10 Minutes [place]: Relaxed Heart Rate FHR Baseline Rate: 130 Monitor Mode: External US FHR Baseline Changes: No Baseline Change Variability: Moderate 6-25 bpm Accelerations: 15X15 Decelerations: None Category: Category I Datetime: 04/24/2017 14:00 Labor Evaluation Frequency: 0 Monitor Mode: External Pattern: Normal: <= 5 Contractions in 10 Minutes [place]: Relaxed Heart Rate FHR Baseline Rate: 130 Monitor Mode: External US FHR Baseline Changes: No Baseline Change Variability: Moderate 6-25 bpm Accelerations: 15X15 Decelerations: None Category: Category I Datetime: 04/24/2017 13:00 Temperature Route: Oral Labor Evaluation Frequency: X1/HR Monitor Mode: External Duration (sec)2399: 60 Quality: Mild Pattern: Normal: <= 5 Contractions in 10 Minutes [place]: Relaxed Heart Rate FHR Baseline Rate: 130 Monitor Mode: External US FHR Baseline Changes: No Baseline Change Variability: Moderate 6-25 bpm Accelerations: 15X15 Decelerations: None Category: Category I Datetime: 04/24/2017 12:00 Labor Evaluation Frequency: 0 Monitor Mode: External Pattern: Normal: <= 5 Contractions in 10 Minutes [place]: Relaxed Heart Rate FHR Baseline Rate: 135 Monitor Mode: External US FHR Baseline Changes: No Baseline Change Variability: Absent - Undetectable Accelerations: 15X15 Decelerations: None Category: Category I Datetime: 04/24/2017 11:00 Labor Evaluation Frequency: X1/HR Monitor Mode: External Duration (sec)2399: 40 Pattern: Normal: <= 5 Contractions in 10 Minutes [place]: Relaxed Heart Rate FHR Baseline Rate: 130 Monitor Mode: External US FHR Baseline Changes: No Baseline Change Variability: Moderate 6-25 bpm Accelerations: 15X15 Decelerations: None Category: Category I Pain Assessment Pain Scale: 0 Pain Presence: None/Denies Pain Assessment Comments: PT DENIES PAIN Datetime: 04/24/2017 10:00 Labor Evaluation Frequency: X1/HR Monitor Mode: External Duration (sec)2399: 60 Quality: Mild Pattern: Normal: <= 5 Contractions in 10 Minutes [place]: Relaxed Heart Rate FHR Baseline Rate: 120 Monitor Mode: External US FHR Baseline Changes: No Baseline Change Variability: Moderate 6-25 bpm Accelerations: 15X15 Decelerations: None Category: Category I Datetime: 04/24/2017 09:00 Labor Evaluation Frequency: X2/HR +IRRIT Monitor Mode: External Duration (sec)2399: 60 Quality: Mild Pattern: Normal: <= 5 Contractions in 10 Minutes [place]: Relaxed Heart Rate FHR Baseline Rate: 120 Monitor Mode: External US FHR Baseline Changes: No Baseline Change Variability: Moderate 6-25 bpm Accelerations: 15X15 Decelerations: None Category: Category I Datetime: 04/24/2017 07:18 Maternal Assessment Level of Consciousness: Fully Conscious DTR's/Clonus: DTRs 2+; No Clonus Headache: Denies Breath Sounds, Left: Clear and Equal Breath Sounds, Right: Clear and Equal Nausea/Vomiting: Denies RUQ Epigastric Pain: Denies Temperature Route: Oral Labor Evaluation Frequency: IRRIT Monitor Mode: External Pattern: Normal: <= 5 Contractions in 10 Minutes [place]: Relaxed Heart Rate FHR Baseline Rate: 110 Monitor Mode: External US FHR Baseline Changes: No Baseline Change Variability: Moderate 6-25 bpm Accelerations: 15X15 Decelerations: None Category: Category I Datetime: 04/24/2017 07:11 Assessment Type: Ongoing Assessment Blurred Vision: No Respiratory Effort: Unlabored; Regular Rhythm; Equal Expansion Lower Extremities Edema: None Degree: None Upper Extremities Edema: None Degree: None Facial Edema: None Fall Risk Assessment History of Falling: (0) No Secondary Diagnosis: (0) No Ambulatory Aid: (0) Bedrest/Nurse Assist Gait: (0) Normal/Bedrest/Immobile Mental Status: (0) Oriented to Own Ability Datetime: 04/24/2017 07:00 Labor Evaluation Frequency: x4 Monitor Mode: External Duration (sec)2399: 60-110 Quality: Mild [place]: Relaxed Contraction Comments: pt resting without apparent distress. Heart Rate FHR Baseline Rate: 110 Monitor Mode: External US FHR Baseline Changes: No Baseline Change Variability: Moderate 6-25 bpm Accelerations: 15X15 Decelerations: None Category: Category I Datetime: 04/24/2017 06:00 Labor Evaluation Frequency: x1 Monitor Mode: External Duration (sec)2399: 100 Quality: Mild [place]: Relaxed Contraction Comments: pt without complaint of uc pain. Heart Rate FHR Baseline Rate: 110 Monitor Mode: External US FHR Baseline Changes: No Baseline Change Variability: Moderate 6-25 bpm Accelerations: 15X15 Decelerations: None Category: Category I Datetime: 04/24/2017 05:00 Labor Evaluation Frequency: x3 Monitor Mode: External Duration (sec)2399: 50-90 Quality: Mild [place]: Relaxed Contraction Comments: pt without complaint of uc pain. Heart Rate FHR Baseline Rate: 110 Monitor Mode: External US FHR Baseline Changes: No Baseline Change Variability: Moderate 6-25 bpm Accelerations: 15X15 Decelerations: None Category: Category I Datetime: 04/24/2017 04:00 Stage of : Antepartum Temperature Route: Oral Labor Evaluation Frequency: none Monitor Mode: External [place]: Relaxed Heart Rate FHR Baseline Rate: 110 Monitor Mode: External US FHR Baseline Changes: No Baseline Change Variability: Moderate 6-25 bpm Accelerations: 15X15 Decelerations: None Category: Category I Datetime: 04/24/2017 03:00 Labor Evaluation Frequency: none Monitor Mode: External [place]: Relaxed Heart Rate FHR Baseline Rate: 110 Monitor Mode: External US FHR Baseline Changes: No Baseline Change Variability: Moderate 6-25 bpm Accelerations: 15X15 Decelerations: None Category: Category I Datetime: 04/24/2017 02:00 Labor Evaluation Frequency: none Monitor Mode: External [place]: Relaxed Heart Rate FHR Baseline Rate: 120 Monitor Mode: External US FHR Baseline Changes: No Baseline Change Variability: Moderate 6-25 bpm Accelerations: 15X15 Decelerations: None Category: Category I Datetime: 04/24/2017 01:00 Labor Evaluation Frequency: none Monitor Mode: External [place]: Relaxed Heart Rate FHR Baseline Rate: 110 Monitor Mode: External US FHR Baseline Changes: No Baseline Change Variability: Moderate 6-25 bpm Accelerations: 15X15 Decelerations: None Category: Category I Datetime: 04/24/2017 00:04 Stage of : Antepartum Temperature Route: Oral Datetime: 04/24/2017 00:00 Labor Evaluation Frequency: none Monitor Mode: External [place]: Relaxed Heart Rate FHR Baseline Rate: 115 Monitor Mode: External US FHR Baseline Changes: No Baseline Change Variability: Moderate 6-25 bpm Accelerations: 15X15 Decelerations: None Category: Category I Datetime: 04/23/2017 23:00 Labor Evaluation Frequency: x1 Monitor Mode: External Duration (sec)2399: 40 Quality: Mild [place]: Relaxed Contraction Comments: pt without complaint of uc pain. Heart Rate FHR Baseline Rate: 120 Monitor Mode: External US FHR Baseline Changes: No Baseline Change Variability: Moderate 6-25 bpm Accelerations: 15X15 Decelerations: None Category: Category I Datetime: 04/23/2017 22:00 Labor Evaluation Frequency: x1 Monitor Mode: External Duration (sec)2399: 40 Quality: Mild [place]: Relaxed Contraction Comments: pt without conplaint of uc pain. Heart Rate FHR Baseline Rate: 140 Monitor Mode: External US FHR Baseline Changes: No Baseline Change Variability: Moderate 6-25 bpm Accelerations: 15X15 Decelerations: None Category: Category I Datetime: 04/23/2017 21:41 Assessment Type: Admission Assessment Maternal Assessment Level of Consciousness: Fully Conscious DTR's/Clonus: DTRs 2+; No Clonus Headache: Denies Blurred Vision: No Respiratory Effort: Unlabored; Regular Rhythm; Equal Expansion Breath Sounds, Left: Clear and Equal Breath Sounds, Right: Clear and Equal Nausea/Vomiting: Denies RUQ Epigastric Pain: Denies Lower Extremities Edema: None Degree: None Upper Extremities Edema: None Degree: None Facial Edema: None Fall Risk Assessment History of Falling: (0) No Secondary Diagnosis: (0) No Ambulatory Aid: (0) Bedrest/Nurse Assist IV Therapy: (20) Yes Gait: (0) Normal/Bedrest/Immobile Mental Status: (0) Oriented to Own Ability Fall Score: 20 Fall Risk Score Definition: No Risk: No action required Datetime: 04/23/2017 21:37 Stage of : Antepartum Temperature Route: Oral Datetime: 04/23/2017 21:30 Stage of : Antepartum Datetime: 04/23/2017 21:00 Labor Evaluation Frequency: none Monitor Mode: External [place]: Relaxed Heart Rate FHR Baseline Rate: 140 Monitor Mode: External US FHR Baseline Changes: No Baseline Change Variability: Moderate 6-25 bpm Accelerations: 15X15 Decelerations: None Category: Category I Datetime: 04/23/2017 20:00 Labor Evaluation Frequency: x1 Monitor Mode: External Duration (sec)2399: 40 Quality: Mild [place]: Relaxed Contraction Comments: pt without complaint of uc pain. Heart Rate FHR Baseline Rate: 135 Monitor Mode: External US FHR Baseline Changes: No Baseline Change Variability: Moderate 6-25 bpm Accelerations: 15X15 Decelerations: None Category: Category I Pain Assessment Pain Scale: 0 Pain Presence: None/Denies Datetime: 04/23/2017 19:22 Stage of : Antepartum Datetime: 04/23/2017 19:20 Temperature Route: Oral Pain Assessment Pain Scale: 4 Pain Presence: Intermittent Pain Type: Pressure Pain Location: Abdomen (Annotations: upper left quad) Pain Goal: 2 Pain Relief Measures: Comfort Measures Datetime: 04/23/2017 19:00 Stage of : Antepartum Labor Evaluation Frequency: NONE Monitor Mode: External [place]: Relaxed Heart Rate FHR Baseline Rate: 130 Monitor Mode: External US FHR Baseline Changes: No Baseline Change Variability: Moderate 6-25 bpm Accelerations: 15X15 Decelerations: None Category: Category I Pain Assessment Pain Scale: 0 Pain Presence: None/Denies Pain Goal: 3 Datetime: 04/23/2017 15:54 Fall Score: 0 Fall Risk Score Definition: No Risk: No action required Datetime: 04/23/2017 15:53 Fall Score: 0 Fall Risk Score Definition: No Risk: No action required Datetime: 04/23/2017 15:43 EGA: 34.1
== END 2017-04-30 14:50 | disposition home or self-care (01) ==
LOC: OBT 12:11 → L-D 12:12 → OBT 14:50
PROVIDERS: ATTEND Obstetrics & Gynecology
DX: O36.8130 Decreased fetal movements, third trimester, not applicable or unspecified (principal); Z3A.35 35 weeks gestation of pregnancy
CPT/HCPCS: 76818; 80053; 81001; 83789; 85025; G0463

== ENCOUNTER 2017-06-19 16:02 | Emergency (ER) | payer MEDICAID ==
[~2017-06-19] VITALS: Ht 152.4 cm; Wt 68.5 kg
[~2017-06-19 16:02] MED LIST changes: -CEPH-443 PO; -COLE625T2 PO; +IBUP-1542 PO; -METO10TA92 PO
[2017-06-19 16:04] VITALS: Ht 152.4 cm; Wt 68.5 kg
--- NOTE | 2017-06-19 17:51 | RADRPT ---
PROCEDURE: XR Chest. CLINICAL INDICATION: Chest wall pain. TECHNIQUE: Single frontal view. COMPARISON: None. FINDINGS: The lungs are clear. The heart size is normal. There is no pleural effusion. There is no pneumothorax. IMPRESSION: 1. Normal chest radiograph. RPTAT: QQ .Cecil Arita MD, Date Time Electronically viewed and signed by .Cecil Arita MD, on 06/19/2017 17:50 .R/
[2017-06-19] MEDS ORDERED: IBUP-1542 PO (18:01)
--- NOTE | 2017-06-19 18:05 | ERD ---
ER Documentation Chief Complaint Date/Time DATE: 06/19/17 TIME: 18:03 Chief Complaint CHEST WALL PAIN WITH RESPIRATION, SOB X3 DAYS HPI This 22-year-old female presents with a sensation of shortness of breath over the last 3 days. She denies any recent illnesses, fevers, she has pain with inspiration and movement in the right lower chest wall. She denies any vomiting or abdominal pain. ROS All systems reviewed and are negative except as per history of present illness. Medications Home Meds Active Scripts Ibuprofen* (Motrin*) 600 Mg Tab, 600 MG PO Q6, #20 TAB Prov:MARYSE ROGER MD 06/19/17 Ibuprofen* (Ibuprofen*) 600 Mg Tablet, 600 MG PO Q6, #30 TAB 0 Refills Prov:MIGUEL ABDALLA MD 05/27/17 Ursodiol* (Ursodiol*) 300 Mg Capsule, 300 MG PO TID, #60 CAP 0 Refills Prov:MIGUEL ABDALLA MD 04/25/17 Reported Medications Calcium Carbonate (Calcium Carbonate) 650 Mg Tablet, 650 MG PO, TAB 04/23/17 Ferrous Sulfate (Iron) 325 Mg Capsule.er, 325 MG PO, CAP 04/23/17 Multivit/Min/Fol Ac/Iron/Pren* ( S*) 1 Tab Tab, 1 TAB PO DAILY, TAB 04/23/17 Allergies Allergies: Coded Allergies: No Known Allergy (Unverified , 04/23/17) PMhx/Soc History of Surgery: Yes (RT BREAST FIBROID SX) Anesthesia Reaction: No Hx Neurological Disorder: No Hx Respiratory Disorders: No Hx Cardiac Disorders: No Hx Psychiatric Problems: No Hx Miscellaneous Medical Probl: No Hx Alcohol Use: No Hx Substance Use: No Hx Tobacco Use: No Smoking Status: Never smoker Physical Exam Vitals Vital Signs Date Time Temp Pulse Resp B/P Pulse Ox O2 Delivery O2 Flow Rate FiO2 06/19/17 16:04 97.5 68 16 121/71 97 Physical Exam Const: []Alert, [id number]. Head: Atraumatic Eyes: Normal Conjunctiva ENT: Normal External Ears, Nose and Mouth. Neck: Full range of motion..~ No meningismus. Resp: Clear to auscultation bilaterally. Slight reproducible pain in the Right lower Cardio: Regular rate and rhythm, no murmurs Abd: Soft, non tender, non distended. Normal bowel sounds Skin: No petechiae or rashes Back: No midline or flank tenderness Ext: No cyanosis, or edema. No calf swelling or Homans sign Neur: Awake and alert Psych: Normal Mood and Affect Results 24 hrs Laboratory Tests Test 06/19/17 18:57 Bedside Urine pH (LAB) 6.0 Bedside Urine Protein (LAB) Negative Bedside Urine Glucose (UA) Negative Bedside Urine Ketones (LAB) Negative Bedside Urine Blood Trace-lysed Bedside Urine Nitrite (LAB) Negative Bedside Urine Leukocyte Esterase (L 1+ Procedures/MDM EKG: Rate/Rhythm: [Normal Sinus Rhythm] rate equals 63 QRS, ST, T-waves: [No changes consistent w/ acute ischemia] Impression: [No evidence of ischemia or arrhythmia]. Impression-normal EKG Chest X-ray 1V Interpreted by me: Soft Tissue: No acute abnormalities Bones: No acute abnormalities Mediastinum/Cardiac Silhouette/Lungs: [No acute abnormalities]. Impression have normal 1 view chest x-ray HCG is negative.Patient presents with sensation of shortness of breath and reproducible or pleuritic right lower chest wall pain. There is no current signs of abdominal pain. Patient is PERC negative is no evidence of tachycardia no history of syncope. Patient appears to have likely chest wall strain and pleuritic chest pain. She will discharged home with prescription ibuprofen and further observation. The patient was stable with no new complaints during the ER course. Clinically, there is no current evidence to suggest meningitis, sepsis, acute abdomen, pneumonia, acute coronary syndrome, pulmonary embolism, or any other emergent condition appearing to require further evaluation or hospitalization. The patient should certainly return for any new or worsening symptoms per the aftercare instructions. They should otherwise follow-up with her primary care doctor for reevaluation this week. Departure Diagnosis: Primary Impression: Chest wall pain Condition: Stable Patient Instructions: Chest Pain, Uncertain Cause Additional Instructions: Examines normal hoy. Cheque otro vez con [place] doctor primario en el proximo [place] or regresa para mas o nueva simptomas. MARYSE ROGER MD Jun 19, 2017 18:05
[2017-06-19 18:51] LABS: URINE BLOOD (Dip) POC Trace-lysed (NEGATIVE)
[2017-06-19 19:10] VITALS: BP 118/78; PULSE 62; RESP 18
== END 2017-06-19 19:13 | disposition home or self-care (01) ==
LOC: FTE 16:02
DX: R07.89 Other chest pain (principal)
CPT/HCPCS: 71010; 81003; 93005; Z7502